=== PATIENT | male | born 2000 | race Caucasian/White ===

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

== ENCOUNTER 2025-02-22 15:03 | Emergency (ER) | payer OTHER, SELFPAY ==
--- OUTSIDE RECORDS SUMMARY | 2025-02-22 15:06 | XMS_ITS | Clinical Summary ---
Author Organization [facility] o[facility] Address [address] [place] [address] Care Team Providers Care Casing Cooker Name Role Phone Matilda Riggins MD Primary Care Provider Allergies No known active allergies Medications diazePAM (VALIUM) 5 mg tablet Take 1 tablet (5 mg total) by mouth every 8 (eight) hours as needed for muscle spasms for up to 5 days. 15 tablet 06/06/2018 Active citalopram (CeleXA) 20 mg tablet 06/21/2018 Active Active Problems Problem Noted Date Diagnosed Date Pectus excavatum Encounters Date Type Department Care Team Description 01/20/2025 3:35 PM CDT - 01/20/2025 11:59 PM CDT Hospital Encounter [facility] [address] [place] [id number] Pain in thoracic spine Discharge Disposition: Discharge to home or self care from Last 3 Months Surgical History Surgery Date Site/Laterality Comments PECTUS EXCAVATUM REPAIR 06/02/2018 Medical History Medical History Date Comments Pectus excavatum Family History Medical History Relation Name Comments No Known Problems Father No Known Problems Mother Relation Name Status Comments Father Mother Social History Tobacco Use Types Packs/Day Years Used Date Smoking Tobacco: Never Smokeless Tobacco: Never Alcohol Use Standard Drinks/Week Comments No 0 (1 standard drink = 0.6 oz pur e alcohol) Sex and Gender Information Value Date Recorded Sex Assigned at Not on file Legal Sex Male 1:34 PM HEAD BELLHOP CAPTAIN Gender Identity Not on file Sexual Orientation Not on file Obstetrics History Last Filed Vital Signs Vital Sign Reading Time Taken Comments Blood Pressure 105/63 12/04/2018 9:54 AM HEAD BELLHOP CAPTAIN Pulse 96 12/04/2018 9:54 AM HEAD BELLHOP CAPTAIN Temperature 36.8 C (98.2 F) 06/06/2018 2:18 PM CDT Respiratory Rate 21 06/06/2018 2:18 PM CDT Oxygen Saturation 98% 06/06/2018 10: 35 AM CDT Inhaled Oxygen Concentration - - Weight 57.1 kg (125 lb 14.1 oz) 12/04/2018 9:54 AM HEAD BELLHOP CAPTAIN Height 176.9 cm (5' 9.65 ) 12/04/2018 9:54 AM CS T Body Mass Index 18.25 12/04/2018 9:54 AM HEAD BELLHOP CAPTAIN Plan of Treatment Health Maintenance Due Date Last Done Comments Depression Screening 2002 Hepatitis C Screening 2002 HPV Vaccines (1 - Male 3-dos e series) 2017 Meningococcal B Vaccine (1 o f 2 - Standard) 2018 Regular Well Visit/Exam 18-64 2020 Influenza Vaccine (Season Ended) 2025 10/20/2013, 10/16/2013, 10/29/2006, Additional history exists DTaP/Tdap/Td Vaccine (7 - Td or Tdap) 01/15/2026 01/16/2016, 10/29/2006, 08/27/2003, Additional history exists Hepatitis B Screening Completed 2002 , 2002, 2002 Pneumococcal vaccine <65 Completed 003, 2002, 2002, Additional history exists Varicella Vaccines Completed 10/29/2006, 05/31/2003 Procedures Procedure Name Priority Date/Time Associated Diagnosis Comments XR SCOLIOSIS AP LAT Schedule Routine, Read Routine (OP Routine) 01/20/2025 3:56 PM CDT Pain in thoracic spine from Last 3 Months Results * XR Scoliosis Ap Lat (01/20/2025 3:56 PM CDT) Anatomical Region Laterality Modality Spine N/A Computed Radiogr aphy 01/22/2025 5:56 PM CDT Narrative 01/22/2025 6:08 PM CDT EXAM DESCRIPTION: XR SCOLIOSIS AP AND LATERAL REASON FOR STUDY: PAIN IN THOR SPINE Pain for 3 years in middle back No surgery FINDINGS: Two views submitted with comparison 12/04/2018. Mild levocurvature of the upper thoracic spine, dextrocurvature of the inferior thoracic spine and rotary levoscoliosis of the thoracolumbar junction. No acute fracture. The intervertebral disc space heights are normal. Sternotomy wires are noted. IMPRESSION: Mild scoliosis of the thoracolumbar spine. THIS IS AN ELECTRONICALLY VERIFIED FINAL REPORT 01/22/2025 6:08 PM - Electronically signed by Minesh Smith M.D. MF: [email or web address] Report ID: [id number] Reading Location: [id number] Procedure Note Minesh Smith MD - 01/22/2025 EXAM DESCRIPTION: XR SCOLIOSIS AP AND LATERAL REASON FOR STUDY: PAIN IN THOR SPINE Pain for 3 years in middle back No surgery FINDINGS: Two views submitted with comparison 12/04/2018. Mild levocurvature of the upper thoracic spine, dextrocurvature of the inferior thoracic spine and rotary levoscoliosis of the thoracolumbar junction. No acute fracture. The intervertebral disc space heights are normal. Sternotomy wires are noted. IMPRESSION: Mild scoliosis of the thoracolumbar spine. THIS IS AN ELECTRONICALLY VERIFIED FINAL REPORT 01/22/2025 6:08 PM - Electronically signed by Minesh Smith M.D. MF: [email or web address] Report ID: [id number] Reading Location: [id number] Marito Oviedo MD IMG XR PROCEDURES Final Re sult from Last 3 Months Insurance [facility] Care Teams Casing Cooker Relationship Specialty Start Date End Date Matilda Riggins MD [address] [place] [id number] PCP - General 06/06/18
--- OUTSIDE RECORDS SUMMARY | 2025-02-22 15:06 | XMS_ITS | Referral Summary ---
Author Organization [facility] Address [address] [place] [address] Care Team Providers Care Senior Staff Accountant Name Role Phone Matilda Riggins MD Primary Care Provider Encounters Date Type Department Care Team Description 01/20/2025 3:35 PM CDT - 01/20/2025 11:59 PM CDT Hospital Encounter [facility] [address] [place] [address] Pain in thoracic spine Discharge Disposition: Discharge to home or self care from Last 3 Months Allergies No known active allergies Medications diazePAM (VALIUM) 5 mg tablet Take 1 tablet (5 mg total) by mouth every 8 (eight) hours as needed for muscle spasms for up to 5 days. 15 tablet 06/06/2018 Active citalopram (CeleXA) 20 mg tablet 06/21/2018 Active Active Problems Problem Noted Date Diagnosed Date Pectus excavatum Social History Tobacco Use Types Packs/Day Years Used Date Smoking Tobacco: Never Smokeless Tobacco: Never Alcohol Use Standard Drinks/Week Comments No 0 (1 standard drink = 0.6 oz pur e alcohol) Sex and Gender Information Value Date Recorded Sex Assigned at Not on file Legal Sex Male 1:34 PM PATCHER WOOD WELDER Gender Identity Not on file Sexual Orientation Not on file Last Filed Vital Signs Vital Sign Reading Time Taken Comments Blood Pressure 105/63 12/04/2018 9:54 AM PATCHER WOOD WELDER Pulse 96 12/04/2018 9:54 AM PATCHER WOOD WELDER Temperature 36.8 C (98.2 F) 06/06/2018 2:18 PM CDT Respiratory Rate 21 06/06/2018 2:18 PM CDT Oxygen Saturation 98% 06/06/2018 10: 35 AM CDT Inhaled Oxygen Concentration - - Weight 57.1 kg (125 lb 14.1 oz) 12/04/2018 9:54 AM PATCHER WOOD WELDER Height 176.9 cm (5' 9.65 ) 12/04/2018 9:54 AM CS T Body Mass Index 18.25 12/04/2018 9:54 AM PATCHER WOOD WELDER Plan of Treatment Not on file Procedures Procedure Name Priority Date/Time Associated Diagnosis [...] Minesh Smith M.D. MF: [email or web address] Report ID: [id number] Reading Location: [id number] Procedure Note Minesh Smith MD - 01/22/2025 [...] Minesh Smith M.D. MF: GLENDA Report ID: [id number] Reading Location: [place] [address] Marito Oviedo MD IMG XR PROCEDURES Final Re sult from Last 3 Months Insurance [id number] [place] [address] [facility] Care Teams Senior Staff Accountant Relationship Specialty Start Date End Date Matilda Riggins MD [address] [place] [address] PCP - General 06/06/18
--- OUTSIDE RECORDS SUMMARY | 2025-02-22 15:06 | XMS_ITS | Clinical Summary ---
Author Organization [facility] [employer] Address [address] [place] [address] Care Team Providers Care Community Ambassador Name Role Phone Rashmi Clayton MD Primary Care Provider [phone] Source Comments [facility] [employer],non-owned Affiliates and Associated Physician Practices is amultiple site organization consisting of ambulatory clinics and hospital sitesin [place], [place], [place] and [place]. This disclosure is being madepursuant to the Care Everywhere program and may not contain all information available regarding this patient. Last updated 18.[facility] [employer] Allergies No known active allergies Medications * This document contains information received from the source organization and may not represent a complete record from that organization. * Be aware that medications may not be up to date on this document. Alwaysverify current medications with the patient. hydrOXYzine hcl (ATARAX) 10 MG tabletIndicatio ns:Anxiety Neurosis (Inactive) Take 1 tablet by mouth 2 times daily Reasons: Anxiety Neurosis 30 tablet 3 7 Active citalopram (CELEXA) 10 MG tabletIndicatio ns:Aggressive Behavior,Depres iveth Take 1 tablet by mouth once daily Reasons: Aggressive Behavior, Depression 30 tablet 3 7 Active Active Problems Problem Noted Date Diagnosed Date Major depressive disorder, recurrent episode 05/2017 Generalized anxiety disorder 08/14/2017 Social History Tobacco Use Types Packs/Day Years Used Date Smoking Tobacco: Never Smokeless Tobacco: Never Tobacco Cessation:Counseling Given: No Alcohol Use Standard Drinks/Week Comments No 0 (1 standard drink = 0.6 oz pur e alcohol) Sex and Gender Information Value Date Recorded Sex Assigned at Not on file Legal Sex Male 5:41 AM EMISSION SPECIALIST Gender Identity Not on file Sexual Orientation Not on file Last Filed Vital Signs Vital Sign Reading Time Taken Comments Blood Pressure 123/50 08/16/2017 1:39 PM EMISSION SPECIALIST Pulse 112 08/16/2017 1:39 PM EMISSION SPECIALIST Temperature 36.9 C (98.5 F) 08/16/2017 1:39 PM EMISSION SPECIALIST Respiratory Rate 16 08/16/2017 1:39 PM EMISSION SPECIALIST Oxygen Saturation 99% 08/16/2017 1:39 PM EMISSION SPECIALIST Inhaled Oxygen Concentration 100% 01/10/2013 1 2:45 AM CDT Weight 50.8 kg (112 lb) 08/13/2017 10:50 PM EMISSION SPECIALIST Height 171.5 cm (5' 7.5 ) 08/13/2017 10:50 PM CS T Body Mass Index 17.28 08/13/2017 10:50 PM EMISSION SPECIALIST Plan of Treatment Health Maintenance Due Date Last Done Comments HIV SCREENING 2017 HPV VACCINE (1 - Male 3-dose series) 2017 MENINGOCOCCAL (Group B) VACC INE SHARED DECISION-MAKING (1 of 2 - Standard) 2018 HEPATITIS C SCREENING 03/26/2020 DTAP/TDAP/TD VACCINES (1 - Tdap) 2021 HEPATITIS B VACCINE (1 of 3 - 19+ 3-dose series) 2021 COVID-19 VACCINE (1 - 2023-2 5 season) 2024 DEPRESSION SCREENING 10/07/2024 INFLUENZA VACCINE (Season Ended) 2025 ZOSTER VACCINE (1 of 2) 2052 HIB VACCINE Aged Out No longer eligi ble based on patient's age to complete this topic MENINGOCOCCAL GROUPS A/C/Y/W VACCINE Aged Out No longer eligible b ased on patient's age to complete this topic PNEUMOCOCCAL VACCINE Aged Out No long er eligible based on patient's age to [place] [address] [employer] MED[employer] - [place] Member Subscriber Plan / Payer (Ef fective for All Dates) Name:Stuart Dhillon Relation to Subscriber:Self Name:Stuart Dhillon Payer ID:Not on file Group ID:Not on file Type:Medicaid [place] Address: [place] [id number] [facility], [facility] Cassandra Lozano [place] [phone] [place]ID - [place] [facility]ly [facility], [facility] Cassandra BUENROSTRO [id number] [facility] Advance Directives * Full Code (Latest Code Status on File) Date Activated Date Inactivated Comments 08/13/2017 9:19 PM 08/16/2017 3:18 PM Care Teams Community Ambassador Relationship Specialty Start Date End Date Rashmi Clayton MD [address] [place] [address] [place] [id number] PCP - General Family Medicine 12/14/19
--- OUTSIDE RECORDS SUMMARY | 2025-02-22 15:06 | XMS_ITS | Clinical Summary ---
Author Organization [facility] Address [address] [place] [address] Phone Care Team Providers Care Java Grails Developer Name Role Phone Matilda Riggins MD Primary Care Provider Social History Tobacco Use Types Packs/Day Years Used Date Smoking Tobacco: Never Assessed Sex and Gender Information Value Date Recorded Sex Assigned at Not on file Legal Sex Male 9:35 PM CDT Gender Identity Not on file Sexual Orientation Not on file Plan of Treatment Health Maintenance Due Date Last Done Comments Hepatitis C Virus (HCV) Screening 2002 Human Papillomavirus (HPV) Immunization (1 - Male 3-dose series) 2017 Meningococcal B Immunization (1 of 2 - Standard) 2018 Influenza Immunization (#1) 06/07/202410/07, 10/16/2013, 10/29/2006, Additional history exists SARS-COV-2 Immunization ( - 2023- season) 2024 Respiratory Syncytial Virus (RSV) Immunization (Adult) (1 - 1-dose 75+ series) 2077 Hepatitis B Immunization Completed 002, 2002, 2002 Pneumococcal Immunization Combined Aged Out 08/27/2003, 2002, 2002, Additional history exists No longer eligible based on patient's age to complete this topic Measles Mumps Rubella (MMR) Immunization Discontinued 10/29/2006, 05/31/2003 Polio (IPV) Immunization Discontinued 007, 08/27/2003, 2002, Additional history exists Varicella Immunization Discontinued 10/29/2006, 2002 DTaP/Tdap/Td Immunization Discontinued 2015, 10/29/2006, 08/27/2003, Additional history exists TdaP Immunization Completed 01/16/2016 Meningococcal Immunization (ACWY) Completed 06/04/2019, 01/16/2016 Rotavirus Immunization Aged Out No lo nger eligible based on patient's age to complete this [place] [address] MEDICAID [employer] Care Teams Java Grails Developer Relationship Specialty Start Date End Date Matilda Riggins MD [address] [place] [address] [address] [place] [address] PCP - General Pediatrics 06/13/18
[2025-02-22 15:12] VITALS: BP 117/76; PULSE 104; RESP 20; TEMP 36.8; O2SAT 99
--- NOTE | 2025-02-22 15:15 | ED.URI ---
HPI - URI/Sore Throat General Chief Complaint: Upper Respiratory Infection Stated Complaint: Sore Throat/Ear Pain Time Seen by Provider: 02/22/25 15:18 Source: patient and RN notes reviewed Mode of arrival: ambulatory Limitations: no limitations History of Present Illness HPI Narrative: 24-year-old male presents with concern for sore throat and right ear pain for 3 days. Reports chronic sinus congestion. He has not taken any medication for his symptoms. He denies fever aches, chills, sweats. MD elicited complaint: sore throat Related Data Home Medications Medication Instructions Recorded Confirmed Last Taken Type escitalopram oxalate 10 mg tablet mg 02/22/25 Unknown History Allergies Allergy/AdvReac Type Severity Reaction Status Date / Time No Known Allergies Allergy Unverified 02/22/25 15:17 Review of Systems Review of Systems: CONSTITUTIONAL: Denies malaise, chills, sweats, or fever. EYES: Denies visual changes, redness, or discharge. ENT: Reports rhinorrhea, congestion, otalgia and sore throat. CARDIOVASCULAR: Denies chest pain, palpitations, or edema. RESPIRATORY: Denies cough. Denies dyspnea. GASTROINTESTINAL: Denies abdominal pain, nausea, vomiting, diarrhea SKIN: Denies rash or itching. MUSCULOSKELETAL: Denies myalgia. NEUROLOGIC: Denies headache. All systems reviewed & are unremarkable except as noted in HPI and below PMFSH Past Medical History Medical History (Updated 02/22/25 @ 15:33 by Renetta Rojas NP) Pectus excavatum surgical repair Anxiety and depression Family History Family History (Updated 07/12/11 @ 12:54 by DOCTOR UNKNOWN) Other Hypertension Social History Social History (Updated 06/24/21 @ 10:11 by Lanny Villasenor NP) Smoking status: Never smoker Alcohol intake: never Substance use: never Living arrangements: with family Gender identity (if verbalized by the patient): Male Comments At time of signature, agree with nursing past medical, surgical, social and family history. There is no relevant family history pertinent to the presenting complaint Exam Narrative: GENERAL: Well-appearing, well-nourished, and in no acute distress. HEAD: Normocephalic EYES: PERRLA, conjunctivae clear ENT: Nares clear, turbinates edematous and erythematous, clear discharge. Mucous membranes moist. TM pearly bang with dull light reflex bilaterally; no tragal tenderness. Oropharynx not erythematous without lesions. Tonsils not enlarged and without exudate, no drooling, no hoarseness, no trismus, uvula midline. NECK: Supple. No lymphadenopathy CHEST: Clear to auscultation, breath sounds equal. No wheezing, rhonchi, rales, or stridor. No respiratory distress, speaks in full sentences. HEART: Regular rate and rhythm. No murmur heard. SKIN: Warm, dry, no rash. NEURO: Alert and oriented x3. PSYCH: Normal mood and affect Course Course Emergency Course: Patient is aware of diagnosis, understands and agrees to treatment plan. Anticipatory guidance given. Patient agrees to follow-up as directed and is aware of reasons to seek care at the emergency department. Portions of this record may have been created with voice recognition software Level of Care: Express Care Visit Vital Signs Vital signs: Reviewed. MDM - URI/Sore Throat MDM Narrative Medical decision making narrative: Differential diagnosis considered: Mills virus, strep pharyngitis, allergic rhinitis, upper respiratory tract infection, sinusitis, rhinosinusitis, nasopharyngitis. viral pharyngitis, otitis media, otitis externa, pneumonia, bronchitis, viral cough syndrome, viral syndrome, and influenza. Exam findings show no acute concerns or changes; patient is non-toxic appearing and is in no distress. Patient is appropriate for outpatient treatment and follow-up. Lab Data Attestation: I reviewed the patient's lab results. Critical Care Time Critical Care Time Critical Care Time: No Discharge Plan Discharge Clinical Impression: Upper respiratory infection Qualifiers: URI type: unspecified URI Qualified Code(s): J06.9 - Acute upper respiratory infection, unspecified Patient Disposition: Home Condition: Stable Instructions: Upper Respiratory Infection (ED) Additional Instructions: Your rapid strep swab was negative today at [facility]. A throat culture will be sent to the laboratory for further testing. If the test is positive, you will receive a phone call within 48 hours and an appropriate antibiotic will be initiated at that time. Your symptoms are likely due to a viral illness, which is not treated with antibiotics. Viral symptoms can be present for up to a few weeks. -Alternate Tylenol and Motrin per package directions for fever or pain. -Antihistamine medication such as Benadryl at night and Zyrtec during the day can help improve symptoms. -Eat and drink things that are easy to swallow, like tea or soup, or popsicles to suck on. -Oral rinses such as: Salt water gargles and/or may use topical anesthetic (eg. Chloraseptic spray) or lozenges to relieve dryness or throat pain). -Frequent hand washing or hand wind turbine technician is one of the best ways to prevent spread of infection. -Follow up with primary care provider in 2-3 days if condition is not improving; or seek ER visit if you have trouble breathing, cannot drink enough fluids, have muffled voice, difficulty opening your mouth, or severe swelling. Patient Language: Slovenian Prescriptions: New cetirizine-pseudoephedrine [Zyrtec-D] 5-120 mg tablet extended release 12 hr 1 tablet PO Q12H PRN (Reason: nasal congestion) Qty: 12 0RF No Action escitalopram oxalate 10 mg tablet Follow-up/Referrals: Preet,MD Marito [Primary Care Provider] - Time of Disposition: 15:33
[2025-02-22 15:28] LABS: EDSTREPNEGPOS1 Negative (Negative)
== END 2025-02-22 15:37 | disposition home or self-care (01) ==
PROVIDERS: Emergency Provider Nurse Practitioner; PCP Family Medicine
DX: J06.9 Acute upper respiratory infection, unspecified (principal)
CPT/HCPCS: 87081; 87880; 99213; G0463